=== PATIENT | female | born 1980 | race Caucasian/White ===

== ENCOUNTER → 2023-01-01 | Outpatient (CLI) | payer BC ==
--- NOTE | 2023-01-01 19:41 | MR ---
EXAMINATION TYPE: MR cervical spine wo/w con DATE OF EXAM: 01/01/2023 INDICATION: Patient age: Female; 42 years old; Reason for study: M50.123 CERVICAL DISC DISORDER AT C6-C7 LEVEL WITH; PHH. Migraines, Neck pain into arms COMPARISON: None. TECHNIQUE: Multi planar, multi sequence imaging was performed utilizing: T1-weighted, T2-weighted, an d turbo inversion recovery imaging of the cervical spine. IV Contrast: 6ml cc [employer] FINDINGS: Alignment: The cervical vertebral bodies have preserved heights. Alignment is within normal limits gi nathanael patient positioning. Bones: Bone signal is within normal limits. No abnormal bone marrow edema on inversion recovery seque nces. Cord: The spinal cord is unremarkable with regards to their signal intensity and morphology. Discs: Multilevel disc desiccation is present. C2-C3: No significant disc pathology. The spinal canal is patent. No neural foraminal stenosis. C3-C4: No significant disc pathology. The spinal canal is patent. Bilateral facet and uncovertebral joint arthropathy are present with moderate right and mild left neural foraminal stenosis. C4-C5: No significant disc pathology. The spinal canal is patent. Bilateral facet and uncovertebral joint arthropathy are present with mild bilateral neural foraminal stenosis. C5-C6: A disc osteophyte complex is present which minimally narrows the ventral subarachnoid space. Bilateral facet and uncovertebral joint arthropathy are present with moderate bilateral neural elvia inal stenosis. C6-C7: No significant disc pathology. The spinal canal is patent. Bilateral facet and uncovertebral joint arthropathy are present with moderate bilateral neural foraminal stenosis. C7-T1: No significant disc pathology. The spinal canal is patent. No neural foraminal stenosis. Other: None. IMPRESSION: 1. No evidence for disc herniation or significant spinal canal stenosis. 2. Mild to moderate disc degeneration with associated osteoarthritic changes. Neural foraminal stenos is worse on the right C3-C4 and bilateral C5-C6 with moderate neural foraminal stenosis.
== END | disposition home or self-care (01) ==
LOC: RADMRIMAIN 16:01
PROVIDERS: ATTEND Psychiatry & Neurology Neurology
DX: M50.123 Cervical disc disorder at C6-C7 level with radiculopathy (principal); M99.71 Connective tissue and disc stenosis of intervertebral foramina of cervical region; M47.22 Other spondylosis with radiculopathy, cervical region
CPT/HCPCS: 72156; A9585